=== PATIENT | female | born 1975 | race Caucasian/White ===

== ENCOUNTER → 2025-06-14 | Outpatient (CLI) | payer BC | END | disposition home or self-care (01) | LOC: MAMMO 08:53 | PROVIDERS: ATTEND Family Medicine | DX: Z12.31 Encounter for screening mammogram for malignant neoplasm of breast (principal); R92.323 Mammographic fibroglandular density, bilateral breasts; R92.1 Mammographic calcification found on diagnostic imaging of breast | CPT/HCPCS: 77063; 77067 ==